=== PATIENT | female | born 1990 | race Caucasian/White ===

== ENCOUNTER 2018-09-21 05:10 | Observation (INO) | payer OTHER, SELFPAY ==
[2018-09-21 05:10] VITALS: BP 114/61; PULSE 60; RESP 14; TEMP 36.8; O2SAT 98
[2018-09-21 05:16] VITALS: BMI 28.4
[2018-09-21 05:20] VITALS: PULSE 63
--- NOTE | 2018-09-21 05:26 | PCM.HP.STD ---
Problem List (1) Blind left eye Status: Acute (2) Depression Status: Chronic History of Present Illness Date of Admission: 09/21/18 Chief Complaint: left eye blind for three hours The patient is a 27 year old female patient with no past medical history presents to the emergency room at [facility] left eye blindness. Onset of this blindness occurred approximately 930 upon wakening for going to work at third shift. She got to work she noticed it became more severe and her whole visual field and left side went black. Then immediately sought medical attention and went to the emergency room. There she had work-up done and blood work showed sodium 136 potassium 4.6 chloride 106 CO2 22 anion gap 7 glucose 83 BUN 14 creatinine 0.52 estimated GFR is greater than 60, ethanol level none detected, urine tox screen negative for amphetamines, barbiturates, benzodiazepine readings, cocaine, methadone, opiates, oxycodone screen, PCP. CBC showed white blood cell count of 7.9 RBC count of 4.3 hemoglobin 12.5 hematocrit 36.4 mean corpuscular volume 84.1 MCH 28.8 MCHC 34.2 RDW 12.8 platelets [address] scan of the head was unremarkable and EKG was normal sinus rhythm. The patient had no other motor deficits including loss of limb function or facial droop. The left eye blindness spontaneously resolved after 3 hours after onset. Admission to rule out transient ischemic attack was requested by [facility] physician and patient was accepted for observation in progressive care unit. An MRI of the brain will be obtained and neurologic evaluation done following this work-up if it is negative she will be discharged home. Past Medical History Past Medical History (Chronic Problems): Chronic Problems Depression (Chronic) Surgical History: no surgical history Smoking Status: Never smoker - *Family History Maternal History Items: No pertinent history Review of Systems Constitutional: Denies: Chills, Fever, Weight Change HEENT: Reports: Visual Changes. Denies: Head Aches, Sinus Congestion, Sinus Drainage Cardiovascular: Denies: Chest Pain, Palpitations Respiratory: Denies: Cough, Shortness of breath at rest, Sputum production Gastrointestinal: Denies: Abdominal Pain, Nausea, Vomiting Genitourinary: Denies: Dysuria Musculoskeletal: Denies: Joint Pain, Joint Tenderness Skin: Denies: Rash, Wounds Neurological: Denies: Numbness, Tingling, Focal weakness Psychiatric: Denies: Anxiety, Depression, Homicidal Ideations, Suicidal Ideations Hematologic/ Lymphatic: Denies: Easy Bruising, Easy Bleeding VTE Information - Inpt Only VTE Present on Admission: No VTE Mechan Device Prophylaxis: SCD's VTE Pharm Prophylaxis ordered?: No Patient Problems: Active and Suspected Problems Blind left eye (Acute) - Physical Exam General: Alert, Oriented x3, Cooperative HEENT: Atraumatic, PERRLA, EOMI, Normocephalic Neck: Supple Lungs: Clear to auscultation, Normal air movement, No rhonchi, No wheeze, No rales Cardiovascular: Regular rate, Regular Rhythm, Normal S1, Normal S2, No murmurs Abdomen: Bowel Sounds Present, Soft, Non Tender Extremities: No edema Skin: No rashes Musculoskeletal: No Tenderness to Palpation of Joints or Extremities Neurological: Cranial nerves II-XII grossly intact Psych/Mental Status: Normal Affect, Appropriate Vital Signs Temp Pulse Resp BP Pulse Ox 98.3 F 60 14 114/61 98 09/21/18 05:10 09/21/18 05:10 09/21/18 05:10 09/21/18 05:10 09/21/18 05:10 Oxygen Delivery Method Room Air Weight: 186 lb 15.232 oz Body Mass Index (BMI) 28.4 Assessment/Plan All Active Problems Blind left eye (Acute) Plan 1. Transient loss of vision left eye?neurologic checks every 4 hours, MRI brain, start patient on baby aspirin 81 mg p.o. daily. Intent of this work-up is to rule out stroke/TIA, and/or multiple sclerosis 2. Depression?continue with paroxetine and Wellbutrin. Patient has been stable on these medications for the past 2 years 3. DVT prophylaxis?SCDs Code Visit OBSV E&M: 61084 Initial observation care L2
--- NOTE | 2018-09-21 05:47 | MRI_ITS ---
STUDY: MRI BRAIN WITHOUT CONTRAST REASON FOR EXAM: Female, 27 years old. Stroke, vision loss TECHNIQUE: Standardized multiplanar fat and water weighted pulse sequences were obtained. COMPARISON: None. FINDINGS: Normal size of the ventricles and extra-axial spaces for the patient's age. Normal white matter tracts of the supratentorial brain. There is no evidence for recent intracranial ischemia or other cause of cytotoxic edema on diffusion weighted imaging (DWI). Normal T2* images of the brain without demonstrated susceptibility artifact. There is no demonstrated hemosiderin stain. Normal bilateral basal ganglia. Normal thalami. There is no extra-axial fluid accumulation. Normal flow voids within the major intracranial circulation suggesting patency by spin echo criteria. Normal sella turcica, pituitary gland, infundibular stalk, optic chiasm and hypothalamus. Normal tectal plate and pineal gland. Normal midbrain, nathan and medulla. Normal cerebellum. Normal basal cisterns. Normal bilateral temporal bones. Normal bilateral internal auditory canals. No demonstrated orbital abnormality, within the constraints of a routine brain study. Normal visualized paranasal sinuses. Normal calvarium and skull base. Normal visualized soft tissue structures. Normal visualized upper cervical spine. MRI/Brain without Contrast IMPRESSION: Normal unenhanced MRI of the brain. Electronically Signed: Rick Leon MD at 10:15 EDT Tel , Service support ,
[2018-09-21 06:57] LABS: Anion Gap 5 (5-15); BUN 12 mg/dL (7-18); BUN/Creat Ratio 19.5 RATIO (10-20); Calcium,Total 8.6 mg/dL (8.5-10.1); Chloride 109 mmol/L (98-107); Cholesterol 162 mg/dL (200); Creatinine, Serum 0.61 mg/dL (0.55-1.02); EST Glomerular Filtration Rate 123 mL/min (>60); Est Glom Filt Rate - Afr Amer 149 mL/min (>60); Estimated Creatinine Clearance 139.74 ml/min; Glucose 75 mg/dL (74-106); High Density Lipoprotein 61 mg/dL; Sodium Level 134 mmol/L (136-145); Triglycerides 102 mg/dL; Very Low Density Lipoprotein 20 mg/dL (5-40)
[2018-09-21 07:00] VITALS: PULSE 64
[2018-09-21 09:10] VITALS: BP 120/70; PULSE 71; RESP 16; TEMP 37.1; O2SAT 98
[2018-09-21] MEDS: Aspirin E.C. 81 MG Tablet PO (09:27)
[2018-09-21] MEDS: Paroxetine 20 MG Tablet 50 MG PO (09:27)
[2018-09-21] MEDS: buPROPion (XL) 300 MG TABLET.XL PO (09:27)
--- NOTE | 2018-09-21 11:52 | CON.PCM_ITS ---
Reason for Consult Date of Consultation: 09/21/18 Reason for Consultation: vision changes History of Present Illness: currently denies complaints.no headache, no stress. reports symptoms bothersome. denies sleep disruption.sx onset at 930pm. describes fortification spectra.reports headache after mri which was done about 12hrs after vision trouble, does get headaches per admit note:The patient is a 27 year old female patient with no past medical history presents to the emergency room at [facility] left eye blindness. Onset of this blindness occurred approximately 930 upon wakening for going to work at third shift. She got to work she noticed it became more severe and her whole visual field and left side went black. Then immediately sought medical attention and went to the emergency room. There she had work-up done and blood work showed sodium 136 potassium 4.6 chloride 106 CO2 22 anion gap 7 glucose 83 BUN 14 creatinine 0.52 estimated GFR is greater than 60, ethanol level none detected, urine tox screen negative for amphetamines, barbiturates, benzodiazep ine readings, cocaine, methadone, opiates, oxycodone screen, PCP. CBC showed white blood cell count of 7.9 RBC count of 4.3 hemoglobin 12.5 hematocrit 36.4 mean corpuscular volume 84.1 MCH 28.8 MCHC 34.2 RDW 12.8 platelets [address] scan of the head was unremarkable and EKG was normal sinus rhythm. The patient had no other motor deficits including loss of limb function or facial droop. The left eye blindness spontaneously resolved after 3 hours after onset. Admission to rule out transient ischemic attack was requested by [facility] physician and patient was accepted for observation in progressive care unit. An MRI of the brain will be obtained and neurologic evaluation done following this work-up if it is negative she will be discharged home. Past Medical History Past Medical History (Chronic Problems): Chronic Problems Depression (Chronic) Allergies No Known Allergies Allergy (Verified 09/21/18 05:48) Home Medications: Ambulatory Orders Medication Instructions Recorded Naproxen 500 mg PO BID PRN 09/21/18 Paxil 50 mg PO DAILY 09/21/18 Wellbutrin Xl 300 mg PO DAILY 09/21/18 Surgical History: no surgical history Smoking Status: Never smoker Tobacco Use: Non-smoker - *Family History Maternal History Items: No pertinent history Review of Systems Constitutional: Denies: Chills, Fever, Weight Change HEENT: Denies: Head Aches, Sinus Congestion, Sinus Drainage Cardiovascular: Denies: Chest Pain, Palpitations Respiratory: Denies: Cough, Shortness of breath at rest, Sputum production Gastrointestinal: Denies: Abdominal Pain, Nausea, Vomiting Genitourinary: Denies: Dysuria Musculoskeletal: Denies: Joint Pain, Joint Tenderness Skin: Denies: Rash, Wounds Neurological: Reports: Blurred vision, Headaches. Denies: Focal weakness, Numbness, Tingling Psychiatric: Denies: Anxiety, Depression, Homicidal Ideations, Suicidal Ideations Hematologic/ Lymphatic: Denies: Easy Bruising, Easy Bleeding Patient Problems: Active and Suspected Problems Blind left eye (Acute) - Physical Exam General: Alert, Oriented x3, Cooperative HEENT: Atraumatic, PERRLA, EOMI, Normocephalic Neck: Supple, No JVD, Negative Carotid Bruits Lungs: Clear to auscultation, Normal air movement Cardiovascular: Regular rate, No murmurs Abdomen: Bowel Sounds Present, Soft, Non Tender Extremities: No edema, Capillary Refill Less than 3 Seconds Skin: No rashes, No breakdown Musculoskeletal: No Tenderness to Palpation of Joints or Extremities Neurological: Cranial nerves II-XII grossly intact Psych/Mental Status: Normal Affect, Appropriate Vital Signs Temp Pulse Resp BP Pulse Ox 37.1 C 71 16 120/70 98 09/21/18 09:10 09/21/18 09:10 09/21/18 09:10 09/21/18 09:10 09/21/18 09:10 Oxygen Delivery Method Room Air Weight: 84.8 kg Body Mass Index (BMI) 28.4 Intake and Output for Last 24 Hours 09/19/18 09/20/18 09/21/18 23:59 23:59 23:59 Intake Total 220 / 220 Balance 220 / 220 Laboratory Tests Past 24 Hrs 09/21/18 06:14 Sodium 134 L Potassium 4.0 Chloride 109 H Carbon Dioxide 20.0 L Anion Gap 5 BUN 12 Creatinine 0.61 Estim Creat Clear Calc 139.74 Est GFR (MDRD) Af Amer 149 Est GFR (MDRD) Non-Af 123 BUN/Creatinine Ratio 19.5 Glucose 75 Calcium 8.6 Triglycerides 102 Cholesterol 162 LDL Cholesterol 81 VLDL Cholesterol 20 HDL Cholesterol 61 mri normal by report Assessment/Plan All Active Problems Blind left eye (Acute) migraine equivalent no rx needed, now normal migraine: takes naproxen periodically, offer preventative, followup as op.
--- NOTE | 2018-09-21 12:02 | PCM.DC ---
- Discharge Diagnoses Current Active Problems: Current Active and Chronic Problems Blind left eye (Acute) Depression (Chronic) You will use the following diet at home:: No restrictions Your food should be the consistency of: Regular Your liquids should be the consistency of: Regular/Thin Discharge Activity: Return to Normal Activity Weight Bearing Status: Weight bearing as tolerated Call your doctor if you observe: Numbness or Tingling, - - blurred vision Instructions: ED Blurred Vision Allergies/Adverse Reactions: Allergies No Known Allergies Allergy (Verified 09/21/18 05:48) Medications to take at Discharge Naproxen 500 mg PO BID PRN 09/21/18 Paxil 50 mg PO DAILY 09/21/18 Wellbutrin Xl 300 mg PO DAILY 09/21/18 Primary Care Physician: Care Physician,No Primary [Primary Care Provider] - Test Results: Test results from this visit will be discussed in further detail at your follow-up appointment, if applicable. Please Follow Up With: Selene Toledo MD When: one week, to establish PCP relationship Proposed Discharge Date: 09/21/18
--- NOTE | 2018-09-21 12:09 | DCINST_ITS ---
- Discharge Diagnoses Current Active Problems: Current Active and Chronic Problems Blind left eye (Acute) Depression (Chronic) You will use the following diet at home:: No restrictions Your food should be the consistency of: Regular Your liquids should be the consistency of: Regular/Thin Discharge Activity: Return to Normal Activity Weight Bearing Status: Weight bearing as tolerated Call your doctor if you observe: Numbness or Tingling, - - blurred vision Instructions: ED Blurred Vision Allergies/Adverse Reactions: Allergies No Known Allergies Allergy (Verified 09/21/18 05:48) Medications to take at Discharge Naproxen 500 mg PO BID PRN 09/21/18 Paxil 50 mg PO DAILY 09/21/18 Wellbutrin Xl 300 mg PO DAILY 09/21/18 Primary Care Physician: Care Physician,No Primary [Primary Care Provider] - Test Results: Test results from this visit will be discussed in further detail at your follow- up appointment, if applicable. Please Follow Up With: Selene Toledo MD When: one week, to establish PCP relationship Proposed Discharge Date: 09/21/18
--- NOTE | 2018-09-21 13:19 | DS.PCM_ITS ---
Discharge Date and Diagnosis Date of Admission: 09/21/18 Date of Discharge: 09/21/18 - Primary Discharge Diagnosis transient loss of vision - Secondary Discharge Diagnosis Chronic Problems Depression (Chronic) Hospital Course and Treatment Imaging Results: 09/21/18 05:47 Brain without Contrast [MRI] Stat neurology- Dr Timmons Operations: None Procedures: None Summary of Care Provided: The patient is a 27 year old F with no significant PMH who was admitted with a complaint of transient loss of vision after presenting to the ED at [facility] with left eye blindness. She says she felt like there was a curtain coming down over her eyes; she also felt like she had tunneled vision in her right eye. She therefore went to [facility] ED and whre a CT of the head was unremarkable and EKG showed normal sinus rhythm with no acute ST changes. Left eye blindness resolved spontaneously after about 3 hours. She was admitted for possible TIA. Of note, patient also stated that an aunt who had MS. Patient had never had any such visual problems in hte past, and didnt have any weakness, numbness or tingling in any extremities. She had an MRI of the brain on 09/21/18 which was negative. Neurology was consulted and felt her symptoms were due to a migraine equivalent. She remained stable and was discharged h ome on 09/21/18. She is to follow up with her PCP, family practice nurse practitioner and neurology. Patient seen and examined prior to discharge. She had no complaints and felt well. Symptoms had resolved. Review of systems otherwise negative. Labs and vitals reviewed. Home medication reviewed and reconciled. - Physical Exam General: Alert, Oriented x3, Cooperative HEENT: Atraumatic, PERRLA, EOMI, Normocephalic Oral: Moist Mucosa Neck: Supple, No JVD, Negative Carotid Bruits Lungs: Clear to auscultation, Normal air movement, No rhonchi, No wheeze, No rales Cardiovascular: Regular rate, Regular Rhythm, Normal S1, Normal S2, No murmurs Abdomen: Bowel Sounds Present, Soft, Non Tender, Non-Distended, No Hepato- splenomegaly Extremities: No clubbing, No cyanosis, No edema, Capillary Refill Less than 3 Seconds Skin: No rashes, No breakdown Musculoskeletal: No Tenderness to Palpation of Joints or Extremities Lymphatic: No Cervical, Supraclavicular, or Inguinal Adenopathy Neurological: Cranial nerves II-XII grossly intact, Neuro grossly intact, Motor Exam 5/5 strength throughout Psych/Mental Status: Normal Affect, Appropriate, Alert and oriented to time, place, person, mood and affect Vital Signs Temp Pulse Resp BP Pulse Ox 98.7 F 71 16 120/70 98 09/21/18 09:10 09/21/18 09:10 09/21/18 09:10 09/21/18 09:10 09/21/18 09:10 Oxygen Delivery Method Room Air Weight: 186 lb 15.232 oz Body Mass Index (BMI) 28.4 Intake and Output for Last 24 Hours 09/19/18 09/20/18 09/21/18 23:59 23:59 23:59 Intake Total 940 / 940 Balance 940 / 940 Laboratory Tests Past 24 Hrs 09/21/18 06:14 Sodium 134 L Potassium 4.0 Chloride 109 H Carbon Dioxide 20.0 L Anion Gap 5 BUN 12 Creatinine 0.61 Estim Creat Clear Calc 139.74 Est GFR (MDRD) Af Amer 149 Est GFR (MDRD) Non-Af 123 BUN/Creatinine Ratio 19.5 Glucose 75 Calcium 8.6 Triglycerides 102 Cholesterol 162 LDL Cholesterol 81 VLDL Cholesterol 20 HDL Cholesterol 61 Discharge Diet: No Restrictions Discharge Activity: Return to Normal Activity Weight Bearing Status: Weight bearing as tolerated Call your doctor if you observe: Numbness or Tingling, - - blurred vision Home Medications: Medications to take at Discharge Naproxen 500 mg PO BID PRN 09/21/18 Paxil 50 mg PO DAILY 09/21/18 Wellbutrin Xl 300 mg PO DAILY 09/21/18 Primary Care Physician: Care Physician,No Primary [Primary Care Provider] - Please Follow Up With: Selene Toledo MD When: one week, to establish PCP relationship Patient Instructions: ED Blurred Vision Disposition: Home Minutes spent on discharge:: 35 Patient Condition:: Stable Medical Necessity - Tobacco Use Smoking Status: Never smoker Tobacco Use: Non-smoker Meaningful Use Info Meaningful Use Diagnoses (Choose all that apply): None applicable Code Visit Inpatient E&M: 08824 Disch Hosp
== END 2018-09-21 12:09 | disposition home or self-care (01) ==
PROVIDERS: Admitting Provider Family Medicine; Visit Provider Student in an Organized Health Care Education/Training Program
DX: G43.109 Migraine with aura, not intractable, without status migrainosus (principal); H53.122 Transient visual loss, left eye; F32.9 Major depressive disorder, single episode, unspecified; Z79.899 Other long term (current) drug therapy
CPT/HCPCS: 36415; 70551; 80048; 80061; 99218; G0378; G0379

== ENCOUNTER 2020-06-06 20:14 | Observation (INO) | payer MEDICAID, SELFPAY ==
[2018-09-21 05:16] VITALS: BMI 28.4
[2020-06-06 20:14] VITALS: BP 133/71; PULSE 63; RESP 15; TEMP 36.5; O2SAT 97; BMI 31.0
[2020-06-06 20:38] LABS: Red Blood Cells-Urine 0 SEEN /hpf (0-5)
[2020-06-06 20:49] LABS: Color, Urine Yellow (Yellow); Glucose, Dipstick Normal (Normal); Ketone-Dipstick Negative (Negative); Leukocyte Esterase-Dipstick 25 /ul (Negative); Nitrite-Dipstick Negative (Negative); Occult Blood-Urine Negative /ul (Negative); Protein-Dipstick Negative (Negative); Urine Bilirubin Dipstick Negative (Negative); Urine Clarity Cloudy (Clear); Urine Urobilinogen Normal (Normal)
[2020-06-06 20:54] LABS: Internal QC Validated? YES +Cl - CLEAR BKGD; Pregnancy, Urine Negative Negative
[2020-06-06 20:57] LABS: Mucous, Urine 1+ /hpf (<or=2+); Squamous Epithelial Cells - UA 0-5 SEEN /hpf (5-10)
[2020-06-06 20:59] LABS: Bacteria 1+ /hpf (None Seen); White Blood Cells 0-5 SEEN /hpf (0-5)
--- NOTE | 2020-06-06 21:07 | ED.RN ---
PT ASKED FOR PAIN MEDICATION WHILE IN TRIAGE. EXPLAINED THAT CAN BE ORDERED WHEN THE DR EVALUATES HER. PT AGAIN ASKED FOR PAIN MEDICINE WHILE IN THE WAITING ROOM.
--- NOTE | 2020-06-06 21:37 | ED.VIS.GEN ---
History of Present Illness Chief Complaint: Back Informant: Patient Narrative: 29-year-old female presenting with right flank pain which radiates to the right side of the abdomen. This started earlier this morning. She states it has been intermittent all day. She denies dysuria or hematuria. She states she has had nausea/vomiting and it is related to food. She also complains of diarrhea. Patient has not had a fever, chills, myalgias. Patient states he has no significant medical history except for depression. No previous abdominal surgeries. Patient does not believe she is . - Past Medical History (1) Depression Status: Chronic Past Medical History - Allergies and Home Meds Allergies/Adverse Reactions: Allergies No Known Allergies Allergy (Verified 06/06/20 20:17) Primary Care Physician: Care Physician,No Primary [NON-STAFF] - Prior records reviewed: Yes Past Medical History: - - Depression Surgical History: noncontributory Lives: Alone Smoking Status: Never smoker Alcohol: None Drugs: None - Family History Maternal Family History: Reports: No pertinent history Review of Systems General: Denies: Chills, Fever, Malaise Eyes: Denies: Visual changes - bilaterally, Diplopia ENT: Denies: Rhinorrhea, Sore throat Cardiovascular: Denies: Chest pain, Palpitations Respiratory: Denies: Dyspnea, Cough, Dyspnea on exertion Gastrointestinal: Reports: Abdominal pain, Nausea, Vomiting, Diarrhea Genitourinary: Denies: Dysuria, Hematuria, Frequency Musculoskeletal: Reports: Back pain - Right flank pain. Denies: Myalgias, Arthralgias Skin: Denies: Rash, Abscess Neurological: Denies: Headache, Weakness Psych: Denies: Depression, Anxiety Physical Exam Vital Signs/Narrative: Vital Signs Temp Pulse Resp BP Pulse Ox 06/06/20 20:14 97.7 F L 63 15 133/71 H 97 Inital Vital Signs reviewed: Yes General: Well nourished, No Acute Distress Head: Normocephalic, Atraumatic Eyes: Perrl, EOMI ENT: Moist mucous membranes, No rhinorrhea Cardiovascular: Regular rate, Regular rhythm Respiratory: No distress, CTA bilaterally Abdomen: Soft, Nondistended, Tender - CVA right flank. No rebound or guarding. Cordero sign. Back: CVA tenderness - Right-sided. Negative for: Spinal tenderness Extremities: Nontender, No edema Skin: Normal color, No rash Neurological: Alert, Oriented x3, Cranial nerves II-XII grossly intact Psychological: Normal affect, Normal Mood Diagnostic/Tx/Re-eval Clinical Impression(s) from Imaging Studies Abdomen/Pelvis CT 06/06/20 22:06 IMPRESSION: No urinary calculi. No hydronephrosis. No bowel obstruction or inflammation. Normal appendix. Thickened appearance of the gallbladder wall. If indicated, further evaluation with ultrasound can be performed. Small hiatal hernia. Left adrenal adenoma. Electronically Signed: Zaire Arredondo MD at 22:24 EST Tel , Service support , Abdomen Ultrasound 06/06/20 22:59 IMPRESSION: Cholelithiasis. Gallbladder wall thickening. Pain upon insonation of the gallbladder. Findings are consistent with acute cholecystitis.. at 2337 Reported and signed by: Yoni Wilson MD Electronically Signed: Yoni Wilson MD at 23:36 EST Tel , Service support , Laboratory Data 06/06/20 06/06/20 06/06/20 20:29 21:50 21:50 WBC 12.1 H RBC 4.96 Hgb 13.8 Hct 42.6 MCV 85.9 MCH 27.8 MCHC 32.4 RDW Std Deviation 39.9 RDW Coeff of Melecio 12.9 Plt Count 284 MPV 8.9 Immature Gran % (Auto) 0.300 Neut % (Auto) 64.9 Lymph % (Auto) 27.3 [place] % (Auto) 6.0 Eos % (Auto) 1.2 Baso % (Auto) 0.3 Absolute Neuts (auto) 7.8 H Absolute Lymphs (auto) 3.29 Nucleated RBC % 0 Sodium 137 Potassium 4.4 Chloride 108 H Carbon Dioxide 22.0 Anion Gap 7 BUN 10 Creatinine 0.74 Estim Creat Clear Calc 117.23 Est GFR (MDRD) Af Amer 118 Est GFR (MDRD) Non-Af 98 BUN/Creatinine Ratio 13.4 Glucose 93 Calcium 9.0 Total Bilirubin Direct Bilirubin AST ALT Alkaline Phosphatase Total Protein Albumin Globulin Lipase Urine Color Yellow Urine Clarity Cloudy Urine pH 6.0 Ur Specific [place] 1.020 Urine Protein Negative Urine Glucose (UA) Normal Urine Ketones Negative Urine Occult Blood Negative Urine Nitrite Negative Urine Bilirubin Negative Urine Urobilinogen Normal Ur Leukocyte Esterase 25 H Urine RBC 0 SEEN Urine WBC 0-5 SEEN Ur Squamous Epith Cells 0-5 SEEN Urine Bacteria 1+ Urine Mucus 1+ Urine Test Negative 06/06/20 21:50 WBC RBC Hgb Hct MCV MCH MCHC RDW Std Deviation RDW Coeff of Melecio Plt Count MPV Immature Gran % (Auto) Neut % (Auto) Lymph % (Auto) [place] % (Auto) Eos % (Auto) Baso % (Auto) Absolute Neuts (auto) Absolute Lymphs (auto) Nucleated RBC % Sodium Potassium Chloride Carbon Dioxide Anion Gap BUN Creatinine Estim Creat Clear Calc Est GFR (MDRD) Af Amer Est GFR (MDRD) Non-Af BUN/Creatinine Ratio Glucose Calcium Total Bilirubin 0.50 Direct Bilirubin 0.06 AST 26 ALT 27 Alkaline Phosphatase 97 Total Protein 8.0 Albumin 3.5 Globulin 4.5 H Lipase 86 Urine Color Urine Clarity Urine pH Ur Specific [place] Urine Protein Urine Glucose (UA) Urine Ketones Urine Occult Blood Urine Nitrite Urine Bilirubin Urine Urobilinogen Ur Leukocyte Esterase Urine RBC Urine WBC Ur Squamous Epith Cells Urine Bacteria Urine Mucus Urine Test - Medical Decision Making Patient seen and evaluated on arrival. She is complaining of right flank pain that radiates into her right lower abdomen. She has no history of kidney stones. She does have CVA tenderness as well as right lower quadrant tenderness. She also has right upper quadrant tenderness. Initially I obtained blood work and imaging. She was given Toradol and Zofran. Pain was fairly well controlled. She does not request any other pain medication on reevaluation. Patient's labs show a leukocytosis of 12.1, hemoglobin 13.8, hematocrit 42.6, platelets 284. Renal function and electrolytes are normal. LFTs are normal with exception of mildly elevated globulin slightly elevated at 4.5. CT of the abdomen pelvis with out contrast shows no renal calculi. Urinalysis is negative for bladder infection. Patient does have a finding on CT of gallbladder wall thickening. 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 I obtained an ultrasound of the right upper quadrant Gallbladder wall thickening and findings are consistent with acute cholecystitis. Patient was discussed with Dr. Zuñiga who came to evaluate the patient. Patient will be admitted for observation and HIDA scan in the morning. Impression: 1. Acute cholecystitis ED Disposition - Plan for ED Patient: Disposition: Acute Care Hospital [facility] Referrals: Care Physician,No Primary [NON-STAFF] -
[2020-06-06] MEDS: Ketorolac 15 MG/ML Vial IV (21:51)
[2020-06-06 21:54] LABS: Absolute Lymphocyte Count 3.29 X10^3/uL (0.83-4.51); Absolute Neutrophil Count 7.8 X10^3/uL (2.0-7.7); Basophil# 0.04 X10^3/uL; Basophil% 0.3 % (0-1); Eosinophil# 0.14 X10^3/uL; Eosinophils% 1.2 % (0-5); Hematocrit 42.6 % (37-47); Hemoglobin 13.8 g/dL (12.0-15.0); Lymphocyte # 3.29 X10^3/ul (4.0); Lymphocyte % 27.3 % (19-41); Mean Corp Hgb Conc 32.4 g/dL (32-36); Mean Corpuscular Hgb 27.8 pg (27.0-32.0); Mean Corpuscular Volume 85.9 fL (81-99); Mean Platelet Vol. 8.9 fl (6.2-12.0); Monocyte# 0.72 X10^3/uL; NRBC Flagged by Analyzer 0 % (0-5); Neutrophil # 7.83 X10^3/uL (2.7-7.7); Neutrophil % 64.9 % (47-70); Platelet Count 284 K/mm3 (150-450); RBC Distribution Width CV 12.9 % (11.6-14.6); RBC Distribution Width SD 39.9 fl (35.1-43.9); Red Blood Count 4.96 M/mm3 (4.2-5.4); White Blood Count 12.1 K/mm3 (4.4-11.0)
--- NOTE | 2020-06-06 22:06 | CT_ITS ---
STUDY: CT ABDOMEN AND PELVIS WITHOUT CONTRAST REASON FOR EXAM: Female, 29 years old. Lower back pain. Evaluate for kidney stone. RADIATION DOSAGE (If Supplied By Facility): CTDIvol = ( 13.08 ) mGy, DLP = ( 1268.06 ) mGycm TECHNIQUE: Transaxial images were obtained from the dome of the diaphragm to the symphysis pubis without oral contrast, and without intravenous contrast. Sagittal and coronal images were reconstructed. Individualized dose optimization techniques were used for this CT. COMPARISON: None. FINDINGS: Evaluation of the abdominal viscera is limited in the absence of intravenous contrast. The visualized lung bases are clear. The visualized portions of the heart and pericardium are within normal limits. There are no calcified gallstones present. Bilateral appears thickened. The liver demonstrates an unremarkable unenhanced appearance. The spleen is normal in size. The pancreas demonstrates an unremarkable unenhanced appearance. There is a 1.3 cm left adrenal adenoma. The right adrenal gland is within normal limits. There are no renal or ureteral stones. There is no hydronephrosis. There is a small hiatal hernia. There is no bowel obstruction or inflammation. The appendix is visualized and appears normal. The aorta is normal in caliber. There is no abdominal or pelvic free air, free fluid, fluid collection or lymphadenopathy. There are no destructive osseous lesions. CT/Abdomen/Pelvis without Cont IMPRESSION: No urinary calculi. No hydronephrosis. No bowel obstruction or inflammation. Normal appendix. Thickened appearance of the gallbladder wall. If indicated, further evaluation with ultrasound can be performed. Small hiatal hernia. Left adrenal adenoma. Electronically Signed: Zaire Arredondo MD at 22:24 EST Tel , Service support ,
[2020-06-06 22:09] LABS: Anion Gap 7 (5-15); BUN 10 mg/dL (7-18); BUN/Creat Ratio 13.4 RATIO (10-20); Chloride 108 mmol/L (98-107); Creatinine, Serum 0.74 mg/dL (0.55-1.02); EST Glomerular Filtration Rate 98 mL/min (>60); Est Glom Filt Rate - Afr Amer 118 mL/min (>60); Estimated Creatinine Clearance 117.23 ml/min; Glucose 93 mg/dL (74-106); Potassium 4.4 mmol/L (3.5-5.1); Sodium Level 137 mmol/L (136-145)
[2020-06-06 22:14] VITALS: BP 123/75; PULSE 58; RESP 18; O2SAT 98
--- NOTE | 2020-06-06 22:59 | US_ITS ---
HISTORY: PAIN-RUQ TECHNIQUE: Dockery scale and color doppler imaging was performed of the pancreas, liver, and gallbladder. COMPARISON: CT scan of the abdomen and pelvis from one hour earlier FINDINGS: # of images incl. paperwork: 115, including a cine clip. Liver is normal in size and appearance. Cholelithiasis No biliary dilatation. Gallbladder wall measures 4 mm. Common bile duct measures 5 mm. Tenderness upon insonation the gallbladder. Visualized pancreas is normal in appearance. Right kidney is normal in size and appearance. Visualized abdominal aorta has normal caliber. IVC is patent. Hepatopedal flow is present within the central portal vein. US/Abdomen Limited IMPRESSION: Cholelithiasis. Gallbladder wall thickening. Pain upon insonation of the gallbladder. Findings are consistent with acute cholecystitis.. at 2337 Reported and signed by: Yoni Wilson MD Electronically Signed: Yoni Wilson MD at 23:36 EST Tel , Service support ,
[2020-06-06 23:18] LABS: AST(SGOT) 26 U/L (15-37); Alanine Aminotransfer ALT/SGPT 27 U/L (13-56); Albumin, Serum 3.5 g/dL (3.2-5.0); Alkaline Phosphatase 97 U/L (45-117); Bilirubin, Direct 0.06 mg/dL (0.00-0.30); Globulin 4.5 g/dL (2.2-4.2); Lipase 86 U/L (73-393)
[2020-06-07 00:30] VITALS: BP 123/75; PULSE 58; RESP 18; TEMP 36.9; O2SAT 98
--- NOTE | 2020-06-07 00:37 | CON.PCM_ITS ---
Problem List (1) Right upper quadrant abdominal pain Status: Acute Reason for Consult Date of Consultation: 06/07/20 History of Present Illness: 9-year-old female presenting with right flank pain which radiates to the right side of the abdomen. This started earlier this morning. She states it has been intermittent all day. She denies dysuria or hematuria. She states she has had nausea/vomiting and it is related to food. She also complains of diarrhea. Luis A osuna has not had a fever, chills, myalgias. Patient states he has no significant medical history except for depression. No previous abdominal surgeries. Patient does not believe she is . Upon further questioning the patient states that this is really been going on for about 2 weeks intermittently in nature but the pain is always been in the right upper quadrant always going into her back. Gallbladder ultrasound did not show any pericholecystic fluid but the gallbladder wall was thickened slightly at 4 mm and she had a positive Cordero sign. Past Medical History Past Medical History (Chronic Problems): Chronic Problems Depression (Chronic) Allergies No Known Allergies Allergy (Verified 06/06/20 20:17) Home Medications: Ambulatory Orders Medication Instructions Recorded Paroxetine HCl 30 mg PO DAILY 06/06/20 buPROPion XL [Wellbutrin Xl] 300 mg PO DAILY 06/06/20 Surgical History: noncontributory Lives: Alone Smoking Status: Never smoker Alcohol: None Drugs: None - *Family History Maternal History Items: No pertinent history Review of Systems Constitutional: Reports: Anorexia. Denies: Chills, Fever Respiratory: Denies: Cough, Hemoptysis, Shortness of breath at rest, Shortness of breath upon exertion, Wheezing Gastrointestinal: Reports: Abdominal Pain Genitourinary: Denies: Dysuria, Frequency, Hematuria, Urgency Gynecological: Denies: Vaginal discharge Patient Problems: Active and Suspected Problems Right upper quadrant abdominal pain (Acute) - Physical Exam Vitals/I&O's: Vital Signs Temp Pulse Resp BP Pulse Ox 98.4 F 58 L 18 123/75 H 98 06/07/20 00:30 06/07/20 00:30 06/07/20 00:30 06/07/20 00:30 06/07/20 00:30 Oxygen Delivery Method Room Air Weight: 210 lb Body Mass Index (BMI) 31.0 General: Alert, Oriented x3 Lungs: Clear to auscultation Cardiovascular: Regular rate, Regular Rhythm, No murmurs Abdomen: Tender - Tenderness is along the right side and right upper quadrant of the abdomen and going into her back. She has no rashes identified there is no rebound guarding or peritoneal signs identified. The rest of her abdomen is soft. Laboratory Results 06/06/20 20:29: Urine Color Yellow, Urine Clarity Cloudy, Urine pH 6.0, Ur Specific [place] 1.020, Urine Protein Negative, Urine Glucose (UA) Normal, Urine Ketones Negative, Urine Occult Blood Negative, Urine Nitrite Negative, Urine Bilirubin Negative, Urine Urobilinogen Normal, Ur Leukocyte Esterase 25 H, Urine RBC 0 SEEN, Urine WBC 0-5 SEEN, Ur Squamous Epith Cells 0-5 SEEN, Urine Bacteria 1+, Urine Mucus 1+, Urine Test Negative 06/06/20 21:50: WBC 12.1 H, RBC 4.96, Hgb 13.8, Hct 42.6, MCV 85.9, MCH 27.8, MCHC 32.4, RDW Std Deviation 39.9, RDW Coeff of Melecio 12.9, Plt Count 284, MPV 8.9, Immature Gran % (Auto) 0.300, Neut % (Auto) 64.9, Lymph % (Auto) 27.3, Clinch % (Auto) 6.0, Eos % (Auto) 1.2, Baso % (Auto) 0.3, Absolute Neuts (auto) 7.8 H, Absolute Lymphs (auto) 3.29, Nucleated RBC % 0 06/06/20 21:50: Sodium 137, Potassium 4.4, Chloride 108 H, Carbon Dioxide 22.0, Anion Gap 7, BUN 10, Creatinine 0.74, Estim Creat Clear Calc 117.23, Est GFR (MDRD) Af Amer 118, Est GFR (MDRD) Non-Af 98, BUN/Creatinine Ratio 13.4, Glucose 93, Calcium 9.0 06/06/20 21:50: Total Bilirubin 0.50, Direct Bilirubin 0.06, AST 26, ALT 27, Alkaline Phosphatase 97, Total Protein 8.0, Albumin 3.5, Globulin 4.5 H, Lipase 86 Assessment/Plan All Active Problems Blind left eye (Acute) Right upper quadrant abdominal pain (Acute) Going to admit the patient for observations. She can have clear liquids. I am going to obtain a HIDA scan with ejection fraction on her. If this is negative then I am going to do an upper endoscopy on her if it is positive then we will proceed with a laparoscopic cholecystectomy. Going to empirically place her on some antibiotics. She will be Covid tested. She has been tested for Covid numerous times and these of all been negative.
--- NOTE | 2020-06-07 00:45 | NM_ITS ---
CLINICAL: Female, 29 years old. Right upper quadrant pain. NUCLEAR BILIARY SCAN TECHNIQUE: Following the intravenous administration of 5.4 mCi of Tc Mebrofenin, hepatobiliary images was performed. COMPARISON STUDIES : NM - None. CR - Not available for review at this time. CT - 06/06/20 MR - Not available for review at this time. US - 06/06/20 FINDINGS: Relatively prompt and homogeneous radiopharmaceutical concentration is noted by a normal sized liver. There are no parenchymal defects noted.. Gallbladder activity is identified at 15 minutes post radiopharmaceutical administration. Small bowel activity is identified at 60 minutes post radiopharmaceutical administration. Washout of the radiopharmaceutical by the hepatic parenchyma occurs in a normal fashion on qualitative inspection. NM/Hepatobilliary Img w/Pharm Int IMPRESSION: No evidence of acute cholecystitis. Electronically Signed: Zaire Arredondo MD at 12:34 EST Tel , Service support ,
[2020-06-07] MEDS: Morphine 4 MG/ML Syringe IV (00:46)
--- NOTE | 2020-06-07 00:50 | ED.RN ---
4MG MORPHINE GIVEN AT 0046, SCANNER NOT WORKING IN PT ROOM. RN VERIFIED NAME, , AND M#.
[2020-06-07 01:16] VITALS: BMI 32.1
[2020-06-07 01:19] VITALS: BMI 32.1
[2020-06-07 01:21] VITALS: BP 119/66; PULSE 57; RESP 18; TEMP 36.8; O2SAT 96
--- NOTE | 2020-06-07 01:34 | NURSING ---
This RN spoke with Loy in pharmacy. Per Loy, Lactated Ringers and Zosyn not to be ran through same IV. Juany KAUFMAN notified. Claude KAUFMAN
[2020-06-07] MEDS: Lactated Ringers 1,000 ML 100 ML IV (01:52)
[2020-06-07] MEDS: 0.9% Saline Lock 10 ML Syringe IV ×2 (05:15→14:48)
[2020-06-07 06:11] LABS: Absolute Lymphocyte Count 3.57 X10^3/uL (0.83-4.51); Absolute Neutrophil Count 3.5 X10^3/uL (2.0-7.7); Basophil# 0.02 X10^3/uL; Basophil% 0.3 % (0-1); Eosinophil# 0.13 X10^3/uL; Eosinophils% 1.7 % (0-5); Hematocrit 36.3 % (37-47); Hemoglobin 12.2 g/dL (12.0-15.0); Lymphocyte # 3.57 X10^3/ul (4.0); Lymphocyte % 45.7 % (19-41); Mean Corp Hgb Conc 33.6 g/dL (32-36); Mean Corpuscular Hgb 27.9 pg (27.0-32.0); Mean Corpuscular Volume 83.1 fL (81-99); Monocyte# 0.61 X10^3/uL; Monocyte% 7.8 % (0-10); NRBC Flagged by Analyzer 0 % (0-5); Neutrophil # 3.47 X10^3/uL (2.7-7.7); Neutrophil % 44.2 % (47-70); Platelet Count 262 K/mm3 (150-450); RBC Distribution Width CV 12.9 % (11.6-14.6); RBC Distribution Width SD 39.3 fl (35.1-43.9); Red Blood Count 4.37 M/mm3 (4.2-5.4); White Blood Count 7.8 K/mm3 (4.4-11.0)
[2020-06-07 06:27] VITALS: BP 116/50; PULSE 60; RESP 20; TEMP 36.4; O2SAT 100
[2020-06-07 06:45] LABS: ALB/GLOB Ratio 0.8 RATIO (0.9-2.4); AST(SGOT) 15 U/L (15-37); Alanine Aminotransfer ALT/SGPT 23 U/L (13-56); Albumin, Serum 3.1 g/dL (3.2-5.0); Alkaline Phosphatase 76 U/L (45-117); Amylase 52 U/L (25-115); Anion Gap 6 (5-15); BUN 11 mg/dL (7-18); BUN/Creat Ratio 15.8 RATIO (10-20); Calcium,Total 8.9 mg/dL (8.5-10.1); Chloride 107 mmol/L (98-107); EST Glomerular Filtration Rate 105 mL/min (>60); Est Glom Filt Rate - Afr Amer 127 mL/min (>60); Estimated Creatinine Clearance 123.93 ml/min; Globulin 3.9 g/dL (2.2-4.2); Glucose 75 mg/dL (74-106); Lipase 81 U/L (73-393); Potassium 3.3 mmol/L (3.5-5.1); Sodium Level 139 mmol/L (136-145)
--- NOTE | 2020-06-07 09:08 | CASEMGMT ---
SULAIMAN received a call from registration. Apparently patient's mom said patient has Inpatient only Medicaid. Per her mom she got this while she was in long-term. SULAIMAN called [facility] ([phone]). SULAIMAN was sent to patient's nurse outreach case manager- Marina Porras. SULAIMAN left her a voice mail and requested a return call. Rima JONES
[2020-06-07 12:02] VITALS: BP 123/68; PULSE 71; RESP 17; TEMP 36.6; O2SAT 100
[2020-06-07] MEDS: PARoxetine 10 MG Tablet 30 MG PO (12:34)
[2020-06-07] MEDS: buPROPion (XL) 300 MG TABLET.XL PO (12:34)
[2020-06-07] MEDS: Lactated Ringers 1,000 ML 60 ML IV (12:45)
[2020-06-07] MEDS: Ondansetron 4 MG/2 ML Vial IV (14:42)
[2020-06-07] MEDS: Ketorolac 15 MG/ML Vial IV (14:47)
--- NOTE | 2020-06-07 16:32 | PCM.PN.SRG ---
Patient Problems: Active and Suspected Problems Right upper quadrant abdominal pain (Acute) Subjective: Patient is actively obtaining her HIDA scan with ejection fraction. Still having right upper quadrant abdominal pain with nausea. Objective: Abdomen is soft tender. - Physical Exam Vitals/I&O's: Vital Signs Temp Pulse Resp BP Pulse Ox 98 F 71 17 123/68 H 100 06/07/20 12:02 06/07/20 12:02 06/07/20 12:02 06/07/20 12:02 06/07/20 12:02 Oxygen Delivery Method Room Air Weight: 217 lb 9.54 oz Body Mass Index (BMI) 32.1 Intake and Output for Last 24 Hours 06/05/20 06/06/20 06/07/20 23:59 23:59 23:59 Intake Total 2169 Output Total 0 / 0 Balance 2169 Laboratory Results 06/06/20 20:29: Urine Color Yellow, Urine Clarity Cloudy, Urine pH 6.0, Ur Specific [place] 1.020, Urine Protein Negative, Urine Glucose (UA) Normal, Urine Ketones Negative, Urine Occult Blood Negative, Urine Nitrite Negative, Urine Bilirubin Negative, Urine Urobilinogen Normal, Ur Leukocyte Esterase 25 H, Urine RBC 0 SEEN, Urine WBC 0-5 SEEN, Ur Squamous Epith Cells 0-5 SEEN, Urine Bacteria 1+, Urine Mucus 1+, Urine Test Negative 06/06/20 21:50: WBC 12.1 H, RBC 4.96, Hgb 13.8, Hct 42.6, MCV 85.9, MCH 27.8, MCHC 32.4, RDW Std Deviation 39.9, RDW Coeff of Melecio 12.9, Plt Count 284, MPV 8.9, Immature Gran % (Auto) 0.300, Neut % (Auto) 64.9, Lymph % (Auto) 27.3, Stark % (Auto) 6.0, Eos % (Auto) 1.2, Baso % (Auto) 0.3, Absolute Neuts (auto) 7.8 H, Absolute Lymphs (auto) 3.29, Nucleated RBC % 0 06/06/20 21:50: Sodium 137, Potassium 4.4, Chloride 108 H, Carbon Dioxide 22.0, Anion Gap 7, BUN 10, Creatinine 0.74, Estim Creat Clear Calc 117.23, Est GFR (MDRD) Af Amer 118, Est GFR (MDRD) Non-Af 98, BUN/Creatinine Ratio 13.4, Glucose 93, Calcium 9.0 06/06/20 21:50: Total Bilirubin 0.50, Direct Bilirubin 0.06, AST 26, ALT 27, Alkaline Phosphatase 97, Total Protein 8.0, Albumin 3.5, Globulin 4.5 H, Lipase 86 06/07/20 05:50: WBC 7.8, RBC 4.37, Hgb 12.2, Hct 36.3 L, MCV 83.1, MCH 27.9, MCHC 33.6, RDW Std Deviation 39.3, RDW Coeff of Melecio 12.9, Plt Count 262, MPV 9.0, Immature Gran % (Auto) 0.300, Neut % (Auto) 44.2 L, Lymph % (Auto) 45.7 H, Stark % (Auto) 7.8, Eos % (Auto) 1.7, Baso % (Auto) 0.3, Absolute Neuts (auto) 3.5, Absolute Lymphs (auto) 3.57, Nucleated RBC % 0 06/07/20 05:50: Sodium 139, Potassium 3.3 L, Chloride 107, Carbon Dioxide 26.0, Anion Gap 6, BUN 11, Creatinine 0.70, Estim Creat Clear Calc 123.93, Est GFR (MDRD) Af Amer 127, Est GFR (MDRD) Non-Af 105, BUN/Creatinine Ratio 15.8, Glucose 75, Calcium 8.9, Total Bilirubin 0.50, AST 15, ALT 23, Alkaline Phosphatase 76, Total Protein 7.0, Albumin 3.1 L, Globulin 3.9, Albumin/Globulin Ratio 0.8 L, Amylase 52, Lipase 81 Current Medications Bupropion HCl (Bupropion (Xl) 300 Mg Tablet.Xl) 300 mg PO DAILY [facility] Last Admin: 06/07/20 12:34 Dose: 300 mg Documented by: Lactated Ringer's () 1,000 mls @ 60 mls/hr IV .[id number] [facility] Last Admin: 06/07/20 12:45 Dose: 60 mls/hr Documented by: Piperacillin Sod/Tazobactam (Sod 3.375 gm/ Sodium Chloride) 50 mls @ 12.5 mls/hr IV Q8 [facility] Last Admin: 06/07/20 14:47 Dose: 12.5 mls/hr Documented by: Ketorolac Tromethamine (Ketorolac 15 Mg/Ml Vial) 15 mg IV Q6H PRN PRN PRN Reason: PAIN Last Admin: 06/07/20 14:47 Dose: 15 mg Documented by: Ondansetron HCl (Ondansetron 4 Mg/2 Ml Vial) 4 mg IV Q8H PRN PRN PRN Reason: NAUSEA Last Admin: 06/07/20 14:42 Dose: 4 mg Documented by: Paroxetine HCl (Paroxetine 10 Mg Tablet) 30 mg PO DAILY [facility] Last Admin: 06/07/20 12:34 Dose: 30 mg Documented by: Sodium Chloride (0.9% Saline Lock 10 Ml Syringe) 10 - 40 ml IV UD PRN PRN Reason: SALINE FLUSH Last Admin: 06/07/20 14:48 Dose: 20 ml Documented by: Medical Necessity - Tobacco Use Smoking Status: Never smoker Assessment/Plan All Active Problems Blind left eye (Acute) Right upper quadrant abdominal pain (Acute) Given her current condition and state I believe probably the best thing to do here after this test is done is to take her to surgery tomorrow perform a laparoscopic cholecystectomy. Will defer my final opinion until I get the results back from the HIDA scan with ejection fraction.
[2020-06-07 18:52] VITALS: BP 120/68; PULSE 75; RESP 14; TEMP 37; O2SAT 97
[2020-06-07 21:24] VITALS: BP 124/62; PULSE 57; RESP 16; TEMP 37.2; O2SAT 96
[2020-06-08] VITALS (11 sets, daily range): BP systolic 116–148; BP diastolic 61–94; PULSE 61–71; RESP 16–18; TEMP 36.4–37.1; O2SAT 92–100; BMI 32.1
--- NOTE | 2020-06-08 | GALL_PTH ---
PATIENT: DMITRIY CARTER LOC: PCU U#:[id number] AGE/SX: 29/F ROOM: [facility] RE06/07/[address]: Dr. Howie Zuñiga MD : 1990 BED: 1 DIS: 06/08/2020 SPEC #: [id number] RECD: 06/11/20 07:59 STATUS: MEET MENJIVAR #: [id number] BAKARI: 06/08/20 00:[address]: Howie Zuñiga DEPT: SURGICAL PATHOLOGY RECD BY: Rashard Garcia Tissues: Gallbladder, NOS Procedures: Surgery Specimen Level III HEADER OPERATION: Laparoscopic cholecystectomy PRE-OP DIAGNOSIS: Right upper quadrant abdominal pain TISSUE SUBMITTED: Gallbladder MICROSCOPIC DIAGNOSIS Gallbladder, cholecystectomy: Acute and chronic cholecystitis and cholelithiasis. SJ:abel 06/12/2020 MICROSCOPIC DESCRIPTION Slides are reviewed. GROSS DESCRIPTION Received is one container labeled with the patient's name and designated gallbladder. The specimen consists of a gallbladder measuring 8 cm in length and up to 3.5 cm in diameter. The external surface is pink-solano, smooth and glistening for the most part. Focally it is granular, hemorrhagic and contains cautery artifact. The gallbladder contains grayish, turbid mucoid bile and three mulberry light yellow stones measuring in aggregate 1.3 x 0.5 x 0.4 cm and 0.3 to 0.5 cm in greatest dimension. The mucosa is focally congested. The gallbladder wall measures up to 0.3 cm in thickness. Orthotist/Prosthetist sections from the gallbladder and the cystic duct are submitted in one cassette. / SJ:abel 06/11/20 TC:2 CPT: 70041
[2020-06-08] MEDS: Ketorolac 15 MG/ML Vial IV (03:27)
--- NOTE | 2020-06-08 05:00 | EKG12_ITS ---
Test Reason : PRE-OP Blood Pressure : / mmHG Vent. Rate : 058 BPM Atrial Rate : 058 BPM P-R Int : 128 ms QRS Dur : 092 ms QT Int : 444 ms P-R-T Axes : 047 058 034 degrees QTc Int : 435 ms Sinus bradycardia Otherwise normal ECG No previous ECGs available Confirmed by VENKATESH FRANKLIN, HARRIETT ([id number]), writer editor MISHA DOUGLAS ([id number]) on 06/12/2020 1:05:32 PM Referred By: RORY Confirmed By:HARRIETT RIDDLE MD
[2020-06-08] MEDS: Lactated Ringers 1,000 ML 60 ML IV ×3 (05:18→16:37)
[2020-06-08] MEDS: Ondansetron 4 MG/2 ML Vial IV (05:59)
--- NOTE | 2020-06-08 14:10 | PCM.OPRPT ---
Problem List (1) Right upper quadrant abdominal pain Status: Acute (2) Acute cholecystitis Status: Acute Report of Operation Date of Procedure: 06/08/20 Pre-Operative Diagnosis: Acute cholecystitis. Right upper quadrant abdominal pain Post-Operative Diagnosis: Same Surgery/Procedure Performed:: Laparoscopic cholecystectomy Type of Anesthesia:: General Anesthesiologist: Parveen Pardo Specimen's removed: Gallbladder Estimated Blood Loss (mL): < 50 cc Fluids Replaced: 700 cc LR Description of Procedure: Patient was brought into the operating room. Placed in the supine position. Under excellent general trach intubation the abdomen was sterilely prepped draped in usual fashion. Local was injected infraumbilically. Dissection was carried down to the fascia. Fascia is grasped with a Haylie. Varies needle placed inside the abdomen. The abdomen was insufflated 15 torr. A 10/12 trocar was placed difficulty. Patient was placed in the head up position and rotated to the left position. A subxiphoid #5 trocar was placed, inferior to this another #5 trochars placed, laterally a #5 trocar was placed. All these under direct visualization without injury to underlying structures. I aspirated out the gallbladder clear fluid was identified. I grabbed the fundus of the gallbladder with a penetrating grasper and retracted in a cephalad direction. I dissected out the cystic duct. Placed hemoclips proximally distally and ligated the duct. Identified the cystic artery. I placed hemoclips proximally used electrocautery on the gallbladder and transected the artery on the liver itself leaving the 2 clips behind. Use electrocautery deliver the gallbladder from the gallbladder bed placed a specimen a specimen bag and delivered through the umbilical port without difficulty. Use the argon beam aquatic biologist on the liver bed to achieve good pneumostasis. I placed [place] in the liver bed good in the stasis was achieved. Trochars were removed under direct visualization. Fascia the umbilical port was closed with a [id number] stitch of 0 Vicryl. Skin incisions were closed with subcuticular stitches of 4-0 Monocryl. Steri-Strips were applied sterile dressings were applied and the patient tolerated the procedure well. - Admit VTE Documentation VTE Present on Admission: No VTE Mechan Device Prophylaxis: SCD's VTE Pharm Prophylaxis ordered?: No Reason prophylaxis not ordered:: Treatment Not Indicated [id number]: [id number] Laparoscopic cholecystectomy
--- NOTE | 2020-06-08 14:13 | DCINST_ITS ---
Discharge Diet: Light diet - advance as tolerated Discharge Activity: May Not Drive - for 2-3 days or while taking narcotic pain medications., - - Do not drive, work heavy equipment or sign legal documents for 24 hours. May shower in (days): 1 - with the bandage in place. Additional Activity Instructions:: Pain medication may cause nausea. You should typically eat light foods as you take your pain medications. Pain medication may also cause constipation. If this is a problem for you, please discuss with your doctor. Call your doctor if your incision/area has: Continuous Slow Oozing, Sudden Increased Bleeding, Increased Pain/ Swelling, Increased Redness, Foul Smelling Discharge Call your doctor if you observe: Fever of 101 or Higher Suture Line Care: Avoid Pulling/Pushing, Avoid Pinching/Bending Additional Dressing/Incision Instructions:: Leave operative bandaids on for 2 days. When you remove dressing, leave Steri-Strips on until your follow-up appointment, or until the Steri-Strips fall off on their own. Allergies/Adverse Reactions: Allergies No Known Allergies Allergy (Verified 06/06/20 20:17) Medications to take at Discharge Paroxetine HCl 30 mg PO DAILY 06/06/20 buPROPion XL [Wellbutrin Xl] 300 mg PO DAILY 06/06/20 Oxycodone HCl/Acetaminophen [Percocet 5/325] 1 - 2 tab PO Q4H PRN PRN 6 Days #30 tab 06/08/20 The following prescriptions were given: Oxycodone HCl/Acetaminophen [Percocet 5/325] 1 - 2 tab PO Q4H PRN PRN 6 Days #30 tab PRN Reason: Pain Transmission Status: Sent to [facility] Primary Care Physician: Care Physician,No Primary [NON-STAFF] - Test Results: Test results from this visit will be discussed in further detail at your follow- up appointment, if applicable. Please Follow Up With: Howie Zuñiga MD - Please call [phone] to schedule an appointment. When: 7 days after your surgery.
[2020-06-08] MEDS: Bupivacaine Mpf 0.5% 30 ML VIAL (14:23)
--- NOTE | 2020-06-08 16:21 | CASEMGMT ---
SW never heard back from [employer] [facility] [employer] [facility]. SW wrote down the mobile service rv technician's name, phone number to [employer], and wrote down that she should call her about her Medicaid. RN to give this to patient as she was not back up here from surgery yet. Rima HART MSW
== END 2020-06-08 14:13 | disposition home or self-care (01) ==
LOC: ED 06-07 00:20 → PCU 06-07 01:09
PROVIDERS: Admitting Provider Surgery; Emergency Provider Student in an Organized Health Care Education/Training Program; Visit Provider Surgery
PROC: (CPT 47562; principal; 2020-06-08 13:10)
DX: K80.12 Calculus of gallbladder with acute and chronic cholecystitis without obstruction (principal); F41.9 Anxiety disorder, unspecified; F32.9 Major depressive disorder, single episode, unspecified; Z79.899 Other long term (current) drug therapy; R00.1 Bradycardia, unspecified
CPT/HCPCS: 47562; 36415; 74176; 76705; 78227; 80048; 80053; 80076; 81001; 81025; 82150; 83690; 85025; 87426; 88304; 93005; 96365; 96366; 96375; 96376; 99218; 99284; A9537; J7120; A4216; G0378; J2405